=== PATIENT | male | born 1935 | race Native Hawaiian/Other Pacific Islander ===

== ENCOUNTER 2017-01-27 21:25 | Emergency (ER) | payer MEDICARE, OTHER ==
[2017-01-27 21:26] VITALS: BMI 26.6
--- NOTE | 2017-01-27 22:41 | C.PDOC ---
History Of Present Illness 81 y/o male presents to emergency department with complaint of left buttock pain for 2 days. Denies NSAIDs, ice, or use of other therapy for pain. Denies fall or trauma, or any other associated symptoms. Time Seen by Provider: 01/27/17 22:31 Chief Complaint (Nursing): Back Pain History Per: Patient History/Exam Limitations: no limitations Onset/Duration Of Symptoms: Days Current Symptoms Are (Timing): Still Present Quality Of Discomfort: "Pain" Previous Symptoms: None Associated Symptoms: None Recent travel outside of the [place]: No Past Medical History Reviewed: Historical Data, Nursing Documentation, Vital Signs Vital Signs: Last Vital Signs Temp 98.1 F 01/27/17 23:06 Pulse 82 01/27/17 23:06 Resp 16 01/27/17 23:06 BP 150/73 01/27/17 23:06 Pulse Ox 97 01/27/17 23:06 - Medical History PMH: Asthma, Colonic Polyps, HTN, Hypercholesterolemia - [facility] Procedures REMOV INTRALUM EAR FB (08/24/14) TETANUS TOXOID ADMINIST (01/18/15) Family History: States: Unknown Family Hx - Social History Hx Tobacco Use: No Hx Alcohol Use: No Hx Substance Use: No - Immunization History Hx Tetanus Toxoid Vaccination: No Hx Influenza Vaccination: No Hx Pneumococcal Vaccination: No Review Of Systems Except As Marked, All Systems Reviewed And Found Negative. Constitutional: Negative for: Fever, Chills Gastrointestinal: Negative for: Abdominal Pain Genitourinary: Negative for: Dysuria Musculoskeletal: Positive for: Other (left buttock pain ) Skin: Negative for: Rash Neurological: Negative for: Weakness, Numbness Physical Exam - Physical Exam Appears: Non-toxic, No Acute Distress Skin: Warm, Dry Head: Atraumatic, Normacephalic Chest: Symmetrical Cardiovascular: Rhythm Regular Respiratory: Normal Breath Sounds, No Rales, No Rhonchi, No Wheezing Gastrointestinal/Abdominal: Soft, No Tenderness Back: Normal Inspection, No Vertebral Tenderness, No Paraspinal Tenderness Extremity: Normal ROM, Tenderness (left superior posterior illiac crest, minorly worse with walking, no rash ), Capillary Refill (< 2 sec. ), No Deformity Neurological/Psych: Oriented x3, Normal Speech, Normal Cognition ED Course And Treatment O2 Sat by Pulse Oximetry: 98 (RA) Pulse Ox Interpretation: Normal Progress Note: Motrin given. Patient reports improvement of pain on reevaluation. Advised follow up with PMD within 1-2 days. Medical Decision Making Medical Decision Making: tender L posterior superior iliac crest, worse with walking, huge wallet in L posterior jeans pocket. ice packs/nsaids/? walletitis Disposition Doctor Will See Patient In The: Office Counseled Patient/Family Regarding: Studies Performed, Diagnosis - Disposition Referrals: Damian Dennis MD [Staff Provider] - Disposition: HOME/ ROUTINE Disposition Time: 22:40 Condition: GOOD Additional Instructions: motrin 400-600 mg every 6 hours as needed Ice packs to the affected area 1/2 hour per hour Nothing hot no massages Instructions: Musculoskeletal Pain (ED) - Clinical Impression Clinical Impression: Muscle strain of left hip - Scribe Statement The provider has reviewed the documentation as recorded by the Scribabner [place] All medical record entries made by the Scribe were at my direction and personally dictated by me. I have reviewed the chart and agree that the record accurately reflects my personal performance of the history, physical exam, medical decision making, and the department course for this patient. I have also personally directed, reviewed, and agree with the discharge instructions and disposition.
[2017-01-27 23:07] VITALS: BP 150/73; PULSE 82; RESP 16; TEMP 98.1
[2017-01-28 01:05] VITALS: O2SAT 98
== END 2017-01-27 23:10 | disposition home or self-care (01) ==
LOC: C.ER 21:25
DX: S76.012A Strain of muscle, fascia and tendon of left hip, initial encounter (principal); X58.XXXA Exposure to other specified factors, initial encounter

== ENCOUNTER 2017-09-05 08:59 | Day surgery (SDC) | payer MEDICARE, OTHER ==
[2017-08-10 23:53] VITALS: BMI 26.6
[2017-09-05 10:03] VITALS: RESP 18
--- NOTE | 2017-09-05 11:00 | CP.SDSHP ---
Same Day Surgery H & P - History Proposed Procedure: US guided FNA of left thyroid nodule Pre-Op Diagnosis: left thyroid nodule - Allergies Allergies: Allergies ciprofloxacin [From Cipro] Allergy (Mild, Verified 08/11/17 00:03) ITCHING ciprofloxacin HCl [From Cipro] Allergy (Mild, Verified 08/11/17 00:03) ITCHING iodine Allergy (Mild, Verified 08/11/17 00:03) ITCHING levofloxacin [From Levaquin] Allergy (Mild, Verified 08/11/17 00:03) ITCHING sulfamethoxazole [From Bactrim] Allergy (Mild, Verified 08/11/17 00:03) ITCHING trimethoprim [From Bactrim] Allergy (Mild, Verified 08/11/17 00:03) ITCHING - Physical Exam Vital Signs: Vital Signs 09/05/17 09:44 Temperature 98.3 F Pulse Rate 90 Respiratory 18 Rate Blood Pressure 136/73 O2 Sat by Pulse 97 Oximetry Mental Status: Alert & Oriented x3 Neuro: WNL Heart: WNL - Impression Impression: Pt with a 2.7 cm left thyroid nodule. Plan US guided FNA . Pt. Evaluated Today:Candidate for Anesthesia & Procedure: No Short Stay Discharge - Short Stay Discharge Admitting Diagnosis/Reason for Visit: NONTOXIC SINGLE THYROID NODULE Disposition: HOME/ ROUTINE
--- NOTE | 2017-09-05 11:01 | PCM.SURG1 ---
Surgeon's Initial Post Op Note - Surgeon's Notes Surgeon: Rafat Gallardo MD Commodity Lead: NONE Pre-Operative Diagnosis: left thyroid nodule Operative Findings: 2.7 cm solid left thyroid nodule Post-Operative Diagnosis: left thyroid nodule Operation Performed: US guided FNA Specimen/Specimens Removed: 25 g FNA x 4 Estimated Blood Loss: EBL {In ML}: 0 Blood Products Given: N/A Drains Used: No Drains Post-Op Condition: Good Date of Surgery/Procedure: 09/05/17 Time of Surgery/Procedure: 11:00
[2017-09-05 11:19] VITALS: BP 117/71; PULSE 88; TEMP 97.8; O2SAT 98
--- NOTE | 2017-09-09 11:10 | US ---
PROCEDURE: Date of Procedure: 09/05/2017 PROCEDURE: 1. Ultrasound guided FNA of left thyroid nodule, CPT 01822 2. Ultrasound guidance for FNA, 78941 Medications: 3cc 1% Lidocaine HISTORY: Enlarged left thyroid nodule. TECHNIQUE: Following informed consent and procedure time-out, a limited ultrasound patient's neck confirmed the presence of a 2.4 cm x 1.4 cm x 2 cm complex left thyroid nodule which is predominantly solid. After the patient's neck was prepped and draped in the usual sterile fashion, the skin was anesthetized with 1% lidocaine. Ultrasound-guided fine needle aspiration was then performed of the dominant left thyroid nodule. A total of 4 passes were made into the nodule with 25 gauge needle under ultrasound guidance. The FNA specimen was sent for routine pathology. Post biopsy ultrasound showed no hematoma. IMPRESSION: Ultrasound-guided FNA of the dominant left thyroid nodule.
== END 2017-09-05 11:25 | disposition home or self-care (01) ==
LOC: C.SPRAD 08:59
PROVIDERS: ATTEND Radiology Vascular & Interventional Radiology
DX: E04.1 Nontoxic single thyroid nodule (principal)

== ENCOUNTER 2017-10-09 04:58 | Inpatient (IN) | payer MEDICARE, OTHER ==
[2017-10-09 04:58] VITALS: BMI 26.6
--- NOTE | 2017-10-09 05:21 | C.PDOC ---
History Of Present Illness Patient presents to the ER with a complaint fever and chills since last night. Patient states the chills were so bad last night that he could not walk. He also reports a mild nonproductive cough and reports his symptoms have slightly improved. Denies dysuria or hematuria. Time Seen by Provider: 10/09/17 05:21 Chief Complaint (Nursing): Fever History Per: Patient History/Exam Limitations: no limitations Onset/Duration Of Symptoms: Hrs Current Symptoms Are (Timing): Still Present Location Of Pain: None Sick Contacts (Context): None Associated Symptoms: Fever, Chills. denies: Other (Dysuria, Hematuria) Ear Symptoms: Bilateral: None Recent travel outside of the [place]: No Additional History Per: Family Past Medical History Reviewed: Historical Data, Nursing Documentation, Vital Signs Vital Signs: Last Vital Signs Temp 102.3 F H 10/09/17 05:09 Pulse 116 H 10/09/17 05:04 Resp 22 10/09/17 05:04 BP 124/69 10/09/17 05:04 Pulse Ox 95 10/09/17 06:35 - Medical History PMH: Asthma, Colonic Polyps, HTN, Hypercholesterolemia - [facility] Procedures REMOV INTRALUM EAR FB (08/24/14) TETANUS TOXOID ADMINIST (01/18/15) Family History: States: No Known Family Hx - Social History Hx Tobacco Use: No Hx Alcohol Use: No Hx Substance Use: No - Immunization History Hx Tetanus Toxoid Vaccination: No Hx Influenza Vaccination: Yes Hx Pneumococcal Vaccination: Yes Review Of Systems Constitutional: Positive for: Fever, Chills ENT: Negative for: Ear Pain, Throat Pain Cardiovascular: Negative for: Chest Pain Respiratory: Negative for: Shortness of Breath Gastrointestinal: Negative for: Nausea, Vomiting Genitourinary: Negative for: Dysuria, Hematuria Musculoskeletal: Negative for: Back Pain Skin: Negative for: Rash Neurological: Negative for: Weakness Psych: Negative for: Anxiety Physical Exam - Physical Exam Appears: Non-toxic Skin: Warm, Dry Head: Normacephalic Eye(s): bilateral: Normal Inspection Oral Mucosa: Moist Neck: Supple Chest: Symmetrical, No Tenderness Cardiovascular: Rhythm Regular Respiratory: No Rales, No Rhonchi, No Wheezing Gastrointestinal/Abdominal: Soft, No Tenderness Back: No CVA Tenderness Extremity: Normal ROM Extremity: Bilateral: Atraumatic Pulses: Left Dorsalis Pedis: Normal, Right Dorsalis Pedis: Normal Neurological/Psych: Oriented x3, Normal Speech, Normal Cognition Gait: Steady ED Course And Treatment - Laboratory Results Result Diagrams: 10/09/17 06:00 10/09/17 06:00 ECG: Interpreted By Me, Viewed By Me ECG Rhythm: Sinus Rhythm (92), Nonspecific Changes O2 Sat by Pulse Oximetry: 95 (room air) Pulse Ox Interpretation: Normal - Radiology CXR: Interpreted by Me, Viewed By Me CXR Interpretation: Yes: Infiltrates (rll). No: Fracture, Cardiomegaly Progress Note: Blood work, EKG, CXR, and urinalysis ordered. Disposition Discussed With Dr.: Damian Dennis Comment: accepted the pt on his service and took over the care at 6:41 AM Doctor Will See Patient In The: ED Counseled Patient/Family Regarding: Studies Performed, Diagnosis - Disposition Disposition: HOSPITALIZED Disposition Time: 05:21 Condition: FAIR Forms: [facility] (Czech) - POA Present On Arrival: Poor Glycemic Control - Clinical Impression Clinical Impression: Fever, Pneumonia - Scribe Statement The provider has reviewed the documentation as recorded by the Scribe Eugene Linares All medical record entries made by the Scribe were at my direction and personally dictated by me. I have reviewed the chart and agree that the record accurately reflects my personal performance of the history, physical exam, medical decision making, and the department course for this patient. I have also personally directed, reviewed, and agree with the discharge instructions and disposition. Decision To Admit - Pt Status Changed To: Hospital Disposition Of: Inpatient - Admit Certification Admit to Inpatient:: After my assessment, the patient will require hospitalization for at least two midnights. This is because of the severity of symptoms shown, intensity of services needed, and/or the medical risk in this patient being treated as an outpatient. - InPatient: Physician Admission Certification:: After my assessment, the patient will require hospitalization for at least two midnights. This is because of the severity of symptoms shown, intensity of services needed, and/or the medical risk in this patient being treated as an outpatient. - . Bed Request Type: Regular Admitting Physician: Damian Dennis Patient Diagnosis: Fever, Pneumonia
[2017-10-09 05:59] LABS: VENOUS BLOOD GAS BASE EXCESS -0.2 mmol/L (0.0-2.0); VENOUS BLOOD GAS PCO2 37 mmHg (40-60); VENOUS BLOOD GAS PO2 49 mm/Hg (30-55); VENOUS BLOOD PH 7.42 (7.32-7.43)
[2017-10-09 06:05] LABS: BASO # 0.1 K/uL (0.0-0.2); BASO % 0.4 % (0.0-2.0); EOS % 0.1 % (0.0-4.0); HEMOGLOBIN 12.2 g/dL (12.0-18.0); LYMPH # 0.3 K/uL (1.0-4.3); LYMPH % 1.7 % (20.0-40.0); MEAN CELL VOLUME 93.7 fL (80.0-94.0); MEAN CORPUSCULAR HEMOGLOBIN 31.3 pg (27.0-31.0); MEAN CORPUSCULAR HGB CONC 33.4 g/dL (33.0-37.0); MEAN PLATELET VOLUME 9.3 fL (7.2-11.7); NEUT # 15.8 K/uL (1.8-7.0); NEUT % 91.8 % (50.0-75.0); PLATELET COUNT 179 K/uL (130-400); RBC 3.88 Mil/uL (4.40-5.90); RED CELL DISTRIBUTION WIDTH 13.9 % (11.5-14.5); WHITE BLOOD COUNT 17.3 K/uL (4.8-10.8)
[2017-10-09 06:11] LABS: CALCIUM 8.5 mg/dl (8.6-10.4); GFR AFRICAN-AMERICAN > 60; GFR NON-AFRICAN AMERICAN > 60
[2017-10-09 06:12] LABS: INR 1.2
[2017-10-09 06:36] LABS: ALB/GLOB RATIO 1.2 (1.0-2.1); ALBUMIN 3.9 g/dL (3.5-5.0); ALT/SGPT 40 U/L (21-72); AST/SGOT 81 U/L (17-59); BLOOD UREA NITROGEN 25 mg/dL (9-20); MAGNESIUM 1.5 mg/dL (1.6-2.3)
[2017-10-09] MEDS ORDERED: Piperacillin/Tazobact 3.375 gm 100 ML IVPB STA (06:36)
[2017-10-09 06:52] LABS: BANDS 4 % (0-2); LYMPHOCYTE 1 % (20-40); MONOCYTE 2 % (0-10); NEUTROPHIL 93 % (50-75); PLATELET ESTIMATE NORMAL (NORMAL); TOTAL CELLS COUNTED 100
[2017-10-09 06:53] LABS: TOXIC GRANULATION PRESENT
[2017-10-09] MEDS ORDERED: Piperacill/Tazo 3.375gm in Dex 3.375 GM/50 ML BAG IVPB SCH (07:00)
--- NOTE | 2017-10-09 07:17 | CP.PCM.HP ---
History of Present Illness - History of Present Illness History of Present Illness: Chief complaint: Chills, cough History of present illness: 81-year-old male with a history of BPH, asthma, hypertension, lung fibrosis, bronchial asthma. Patient recently went to [place], last week he returned from [place], following that he started having some minimal chills. He was doing okay until yesterday, lasted he started having increasing cough, increasing chills, and also not feeling well. Patient also feeling like dizzy. He took TheraFlu, went to sleep, this morning he started having more symptoms. He felt increasing chills, shaking, and also drowsy. He was not able to eat, but he did not have any vomiting or nausea, no diarrhea noted. But he did not have a fever at that time. After coming to the emergency room he had a high fever, chills, and a tachycardia. He was also having increasing cough. X-ray in the emergency room noted to have a right lower lung pneumonia. Past medical history: BPH bronchial asthma hypertension, history of left lung surgery following a trauma. Allergies: Ciprofloxacin Nonsmoker nonalcoholic. Review of systems noted from the chart. Vital signs reviewed No neck vein distention noted Diffuse bilateral rales in the rhonchi noted CVS regular heart sound, no murmur noted Abdomen soft, nontender. 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 Elevated WBC noted Assessment and recognition: 81-year-old male with a history of BPH, asthma, hypertension, lung fibrosis, bronchial asthma, now admitted with acute pneumonia. Patient received a pneumococcal vaccine, and a flu vaccine recently. Now admitted with acute pneumonia, with acute asthma exacerbation. Patient started on IV antibiotic bronchodilator, DVT prophylaxis. IV fluid and will follow the patient. Patient also having pneumonia, and associated sepsis with a low blood pressure, slowly improving. Educated about pneumonia, spoke to the patient's Present on Admission - Present on Admission Any Indicators Present on Admission: No History of DVT/PE: No History of Uncontrolled Diabetes: No Urinary Catheter: No Decubitus Ulcer Present: No Past Patient History - Infectious Disease Hx of Infectious Diseases: None - Tetanus Immunizations Tetanus Immunization: Unknown - Past Medical History & Family History Past Medical History?: Yes - Past Social History Smoking Status: Former Smoker - CARDIAC Hx Hypercholesterolemia: Yes Hx Hypertension: Yes - PULMONARY Hx Asthma: Yes - NEUROLOGICAL Hx Neurological Disorder: No - HEENT Hx HEENT Problems: Yes Hx Cataracts: Yes (were removed) - RENAL Hx Chronic Kidney Disease: No - ENDOCRINE/METABOLIC Hx Endocrine Disorders: Yes Other/Comment: HX: THYROID NODULE(LEFT) - HEMATOLOGICAL/ONCOLOGICAL Hx Blood Disorders: No - INTEGUMENTARY Hx Dermatological Problems: No - MUSCULOSKELETAL/RHEUMATOLOGICAL Hx Musculoskeletal Disorders: Yes Hx Falls: Yes - GASTROINTESTINAL Hx Gastrointestinal Disorders: Yes - GENITOURINARY/GYNECOLOGICAL Hx Genitourinary Disorders: Yes Hx Prostate Problems: Yes - PSYCHIATRIC Hx Substance Use: No - SURGICAL HISTORY Hx Surgeries: Yes Hx Cataract Extraction: Yes Hx Pulmonary Surgery: Yes (LT LUNG EMBOLI REMOVED) Other/Comment: 1955 blood clot removed from left lung from an accident when pt.in the service - ANESTHESIA Hx Anesthesia: Yes Hx Anesthesia Reactions: No Hx Malignant Hyperthermia: No Meds Allergies/Adverse Reactions: Allergies Allergy/AdvReac Type Severity Reaction Status Date / Time ciprofloxacin [From Cipro] Allergy Mild ITCHING Verified 10/09/17 05:19 ciprofloxacin HCl Allergy Mild ITCHING Verified 10/09/17 05:19 [From Cipro] iodine Allergy Mild ITCHING Verified 10/09/17 05:19 levofloxacin [From Levaquin] Allergy Mild ITCHING Verified 10/09/17 05:19 sulfamethoxazole Allergy Mild ITCHING Verified 10/09/17 05:19 [From Bactrim] trimethoprim [From Bactrim] Allergy Mild ITCHING Verified 10/09/17 05:19 Results - Vital Signs Recent Vital Signs: Last Vital Signs Temp 98.5 F 10/09/17 07:00 Pulse 91 H 10/09/17 07:00 Resp 26 H 10/09/17 07:00 BP 98/56 L 10/09/17 07:00 Pulse Ox 96 10/09/17 07:00 - Labs Result Diagrams: 10/09/17 17:22 10/09/17 17:22 Labs: Laboratory Results - last 24 hr 10/09/17 10/09/17 10/09/17 05:55 06:00 06:00 WBC 17.3 H D RBC 3.88 L Hgb 12.2 Hct 36.3 MCV 93.7 MCH 31.3 H MCHC 33.4 RDW 13.9 Plt Count 179 MPV 9.3 Neut % (Auto) 91.8 H Lymph % (Auto) 1.7 L [place] % (Auto) 6.0 Eos % (Auto) 0.1 Baso % (Auto) 0.4 Neut # 15.8 H Lymph # 0.3 L [place] # 1.0 H Eos # 0.0 Baso # 0.1 Neutrophils % (Manual) 93 H Band Neutrophils % 4 H Lymphocytes % (Manual) 1 L Monocytes % (Manual) 2 Toxic Granulation Present Platelet Estimate Normal RBC Morphology Normal PT 13.0 H INR 1.2 APTT 27 pO2 49 VBG pH 7.42 VBG pCO2 37 L VBG HCO3 24.4 VBG Total CO2 25.1 VBG O2 Sat (Calc) 89.0 H VBG Base Excess -0.2 L VBG Potassium 3.8 Sodium 136.0 Chloride 105.0 Glucose 137 H Lactate 1.0 Potassium Carbon Dioxide Anion Gap BUN Creatinine Est GFR ( Amer) Est GFR (Non-Af Amer) Random Glucose Calcium Phosphorus Magnesium Total Bilirubin AST ALT Alkaline Phosphatase Total Protein Albumin Globulin Albumin/Globulin Ratio Venous Blood Potassium 3.8 10/09/17 06:00 WBC RBC Hgb Hct MCV MCH MCHC RDW Plt Count MPV Neut % (Auto) Lymph % (Auto) [place] % (Auto) Eos % (Auto) Baso % (Auto) Neut # Lymph # [place] # Eos # Baso # Neutrophils % (Manual) Band Neutrophils % Lymphocytes % (Manual) Monocytes % (Manual) Toxic Granulation Platelet Estimate RBC Morphology PT INR APTT pO2 VBG pH VBG pCO2 VBG HCO3 VBG Total CO2 VBG O2 Sat (Calc) VBG Base Excess VBG Potassium Sodium 130 L Chloride 99 Glucose Lactate Potassium 5.0 Carbon Dioxide 24 Anion Gap 12 BUN 25 H Creatinine 1.1 Est GFR ( Amer) > 60 Est GFR (Non-Af Amer) > 60 Random Glucose 129 H Calcium 8.5 L Phosphorus 2.4 L Magnesium 1.5 L Total Bilirubin 1.3 AST 81 H ALT 40 Alkaline Phosphatase 48 Total Protein 7.2 Albumin 3.9 Globulin 3.3 Albumin/Globulin Ratio 1.2 Venous Blood Potassium
[2017-10-09] MEDS ORDERED: Sodium Chloride 0.9% 1,000 ML ONE (07:45)
[2017-10-09] MEDS: Sodium Chloride 0.9% 1,000 ML IV SCH ×2 (07:51→17:30)
[2017-10-09] MEDS: Vancomycin 1 gm/NS 200 ml 1 GM/200 ML BAG IVPB SCH ×2 (08:00→21:21)
--- NOTE | 2017-10-09 08:52 | RAD ---
HISTORY: Sepsis Patient COMPARISON: 11/27/2016 FINDINGS: LUNGS: New opacity mid and lower right lung common nonspecific. Possible pneumonia. No left-sided opacity. PLEURA: Slight blunting left costophrenic angle unchanged from prior, possibly small pleural effusion. No right pleural effusion. No pneumothorax CARDIOVASCULAR: Normal. OSSEOUS STRUCTURES: No significant abnormalities. VISUALIZED UPPER ABDOMEN: Normal. OTHER FINDINGS: None. IMPRESSION: Multifocal right-sided pulmonary opacity. Possible pneumonia. Possible small left pleural effusion.
[2017-10-09] MEDS ORDERED: MIRABEGRON PO SCH (10:00)
[2017-10-09] MEDS ORDERED: Fluticasone-Salmeterol 500-50mcg Diskus INH SCH (10:00)
[2017-10-09 10:04] LABS: SQUAMOUS EPITHIAL < 1 /hpf (0-5); URINE BILIRUBIN NEGATIVE (NEGATIVE); URINE BLOOD NEGATIVE (NEGATIVE); URINE CLARITY Clear (Clear); URINE COLOR Yellow (YELLOW); URINE GLUCOSE (UA) NORMAL (Normal); URINE LEUKOCYTE ESTERASE NEG Leu/uL (Negative); URINE NITRATE NEGATIVE (NEGATIVE); URINE PROTEIN NEGATIVE (NEGATIVE); URINE UROBILINOGEN NORMAL mg/dL (0.2-1.0)
[2017-10-09] MEDS: Multiple Vitamins Tab PO SCH (10:29)
[2017-10-09] MEDS: Enoxaparin 30 mg Syringe SC SCH ×2 (10:30→21:22)
[2017-10-09] MEDS: MethylPREDNISolone 40 mg Vial IVP SCH ×2 (10:40→21:22)
[2017-10-09] MEDS: Magnesium Sulfate 1 gm in D5W 1 GM/100 ML BAG IVPB SCH ×2 (10:41→12:08)
[2017-10-09] MEDS ORDERED: Magnesium Sulfate 1 gm in D5W 1 GM/100 ML BAG IVPB SCH (12:00)
[2017-10-09] MEDS: Albuterol-Ipratrop 3 mg / 0.5 (3 ml) UD INH SCH ×2 (13:18→21:01)
[2017-10-09] MEDS: Piperacill/Tazo 2.25gm in Dex 2.25 GM/50 ML BAG IVPB SCH ×2 (13:39→21:22)
[2017-10-09] MEDS: MICARDIS HCT PO SCH (14:35)
[2017-10-09 17:44] LABS: BASO % 0.1 % (0.0-2.0); HEMOGLOBIN 12.4 g/dL (12.0-18.0); LYMPH # 0.2 K/uL (1.0-4.3); LYMPH % 1.1 % (20.0-40.0); MEAN CELL VOLUME 94.7 fL (80.0-94.0); MEAN CORPUSCULAR HGB CONC 31.7 g/dL (33.0-37.0); MEAN PLATELET VOLUME 9.1 fL (7.2-11.7); MONO # 0.3 K/uL (0.0-0.8); MONO % 1.5 % (0.0-10.0); PLATELET COUNT 192 K/uL (130-400); RBC 4.12 Mil/uL (4.40-5.90); RED CELL DISTRIBUTION WIDTH 13.7 % (11.5-14.5); WHITE BLOOD COUNT 16.7 K/uL (4.8-10.8)
[2017-10-09 18:03] LABS: BLOOD UREA NITROGEN 24 mg/dL (9-20); CALCIUM 8.2 mg/dl (8.6-10.4); GFR AFRICAN-AMERICAN > 60; GFR NON-AFRICAN AMERICAN > 60
[2017-10-09 18:04] LABS: ALB/GLOB RATIO 1.1 (1.0-2.1); ALBUMIN 3.6 g/dL (3.5-5.0); ALT/SGPT 42 U/L (21-72); AST/SGOT 36 U/L (17-59)
[2017-10-09 18:11] LABS: BANDS 11 % (0-2); LYMPHOCYTE 2 % (20-40); MONOCYTE 2 % (0-10); NEUTROPHIL 85 % (50-75); PLATELET ESTIMATE NORMAL (NORMAL); TOTAL CELLS COUNTED 100
[2017-10-10] MEDS: Albuterol-Ipratrop 3 mg / 0.5 (3 ml) UD INH SCH ×4 (01:13→19:31)
[2017-10-10] MEDS: Sodium Chloride 0.9% 1,000 ML IV SCH (03:05)
[2017-10-10] MEDS: Piperacill/Tazo 2.25gm in Dex 2.25 GM/50 ML BAG IVPB SCH ×3 (05:04→21:55)
[2017-10-10] MEDS: Vancomycin 1 gm/NS 200 ml 1 GM/200 ML BAG IVPB SCH ×2 (07:47→20:18)
[2017-10-10] MEDS: Multiple Vitamins Tab PO SCH (09:22)
[2017-10-10] MEDS: MethylPREDNISolone 40 mg Vial IVP SCH ×2 (09:22→21:17)
[2017-10-10] MEDS: Enoxaparin 30 mg Syringe SC SCH ×2 (09:22→21:17)
[2017-10-10] MEDS: MICARDIS HCT PO SCH (14:09)
--- NOTE | 2017-10-10 14:50 | CARD ---
APPROVED REPORT EKG Measurement Heart [id number] VT [id number] <Conclusion> Normal sinus rhythm Inferior infarct, age undetermined Abnormal ECG
--- NOTE | 2017-10-10 14:51 | CARD ---
APPROVED REPORT EKG Measurement Heart [id number] VT 152P47 [id number] <Conclusion> Normal sinus rhythm Inferior-posterior infarct, age undetermined Abnormal ECG
[2017-10-11] MEDS: Albuterol-Ipratrop 3 mg / 0.5 (3 ml) UD INH SCH ×4 (03:19→19:58)
[2017-10-11] MEDS: Piperacill/Tazo 2.25gm in Dex 2.25 GM/50 ML BAG IVPB SCH ×3 (05:02→22:45)
[2017-10-11 08:21] LABS: BASO % 0.2 % (0.0-2.0); HEMOGLOBIN 11.5 g/dL (12.0-18.0); LYMPH # 0.5 K/uL (1.0-4.3); LYMPH % 2.8 % (20.0-40.0); MEAN CELL VOLUME 93.5 fL (80.0-94.0); MEAN CORPUSCULAR HEMOGLOBIN 31.4 pg (27.0-31.0); MEAN CORPUSCULAR HGB CONC 33.6 g/dL (33.0-37.0); MEAN PLATELET VOLUME 9.6 fL (7.2-11.7); MONO # 0.7 K/uL (0.0-0.8); MONO % 3.9 % (0.0-10.0); NEUT # 16.2 K/uL (1.8-7.0); NEUT % 93.1 % (50.0-75.0); PLATELET COUNT 214 K/uL (130-400); RBC 3.68 Mil/uL (4.40-5.90); RED CELL DISTRIBUTION WIDTH 14.2 % (11.5-14.5); WHITE BLOOD COUNT 17.4 K/uL (4.8-10.8)
[2017-10-11] MEDS: Vancomycin 1 gm/NS 200 ml 1 GM/200 ML BAG IVPB SCH ×2 (08:37→19:19)
[2017-10-11 08:44] LABS: ALB/GLOB RATIO 1.2 (1.0-2.1); ALBUMIN 3.4 g/dL (3.5-5.0); ALT/SGPT 51 U/L (21-72); AST/SGOT 36 U/L (17-59); BLOOD UREA NITROGEN 20 mg/dL (9-20); CALCIUM 8.2 mg/dl (8.6-10.4); GFR AFRICAN-AMERICAN > 60; GFR NON-AFRICAN AMERICAN > 60
--- NOTE | 2017-10-11 09:14 | RAD ---
HISTORY: PNA COMPARISON: 10/09/2017 FINDINGS: LUNGS: Focal opacity mid right lung, laterally, unchanged. PLEURA: Blunting the left costophrenic angle likely due to pleural effusion. No evidence of right pleural effusion. No pneumothorax. CARDIOVASCULAR: Normal. OSSEOUS STRUCTURES: No significant abnormalities. VISUALIZED UPPER ABDOMEN: Normal. OTHER FINDINGS: None. IMPRESSION: Persistent focal opacity mid right lung. Probable small left pleural effusion.
[2017-10-11] MEDS: Enoxaparin 30 mg Syringe SC SCH ×2 (09:22→21:36)
[2017-10-11] MEDS: Multiple Vitamins Tab PO SCH (09:22)
[2017-10-11] MEDS: MethylPREDNISolone 40 mg Vial IVP SCH ×2 (09:22→21:36)
[2017-10-11 09:35] LABS: BANDS 3 % (0-2); TOTAL CELLS COUNTED 100
[2017-10-11 09:36] LABS: ANISOCYTOSIS SLIGHT; LYMPHOCYTE 2 % (20-40); MONOCYTE 3 % (0-10); NEUTROPHIL 92 % (50-75); PLATELET ESTIMATE NORMAL (NORMAL); POIKILOCYTOSIS SLIGHT
[2017-10-11] MEDS: MICARDIS HCT PO SCH (12:22)
[2017-10-12] MEDS: Albuterol-Ipratrop 3 mg / 0.5 (3 ml) UD INH SCH ×3 (02:03→13:22)
[2017-10-12] MEDS: Piperacill/Tazo 2.25gm in Dex 2.25 GM/50 ML BAG IVPB SCH ×2 (05:06→13:48)
[2017-10-12] MEDS: Vancomycin 1 gm/NS 200 ml 1 GM/200 ML BAG IVPB SCH (07:56)
[2017-10-12 08:49] VITALS: RESP 20
[2017-10-12] MEDS: Multiple Vitamins Tab PO SCH (09:45)
[2017-10-12] MEDS: MethylPREDNISolone 40 mg Vial IVP SCH (09:45)
[2017-10-12] MEDS: MICARDIS HCT PO SCH (09:46)
[2017-10-12] MEDS: Enoxaparin 30 mg Syringe SC SCH (09:48)
[2017-10-12 09:53] VITALS: PULSE 67
[2017-10-12 16:30] VITALS: BP 142/69; TEMP 97.5; O2SAT 96
--- NOTE | 2017-10-12 16:40 | CP.PCM.PN ---
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, states feels better, denies any sob, cough, congestion, n/v /d oob ambulating without sob Objective - Vital Signs/Intake and Output Vital Signs (last 24 hours): Temp Pulse Resp BP Pulse Ox 97.5 F L 67 20 142/69 96 10/12/17 16:29 10/12/17 16:29 10/12/17 16:29 10/12/17 16:29 10/12/17 16:29 Intake and Output: 10/12/17 10/12/17 06:59 18:59 Intake Total 700 Balance 700 - Medications Medications: Current Medications Albuterol/Ipratropium (Duoneb 3 Mg/0.5 Mg (3 Ml) Ud) 3 ml INH RQ6 [facility] Last Admin: 10/12/17 13:22 Dose: 3 ml Aspirin (Aspirin Chewable) 81 mg PO DAILY [facility] Last Admin: 10/12/17 09:44 Dose: 81 mg Enoxaparin Sodium (Lovenox) 30 mg SC Q12 [facility] Last Admin: 10/12/17 09:48 Dose: 30 mg Finasteride (Proscar) 5 mg PO DAILY [facility] Last Admin: 10/12/17 09:45 Dose: 5 mg Home Med (Mirabegron [Myrbetriq]) 1 tab PO DAILY [facility] Home Med (Patient's Own Medication) 1 tab PO DAILY [facility] Last Admin: 10/12/17 09:46 Dose: 1 tab Piperacillin Sod/Tazobactam Sod (Zosyn 2.25 Gm Iv Premix) 2.25 gm in 50 mls @ 100 mls/hr IVPB Q8 [facility] Last Admin: 10/12/17 13:48 Dose: 100 mls/hr Vancomycin/Sodium Chloride (Vancomycin 1 Gm/Ns 200 Ml) 1 gm in 200 mls @ 133 mls/hr IVPB Q12H [facility] Stop: 10/14/17 08:01 Last Admin: 10/12/17 07:56 Dose: 133 mls/hr Methylprednisolone (Solu-Medrol) 40 mg IVP Q12 [facility] Last Admin: 10/12/17 09:45 Dose: 40 mg Montelukast Sodium (Singulair) 10 mg PO HS [facility] Last Admin: 10/11/17 21:35 Dose: 10 mg Multivitamins (Hexavitamin) 1 tab PO DAILY [place] Last Admin: 10/12/17 09:45 Dose: 1 tab Fluticasone/Salmeterol (Advair Diskus 500/50) 1 puff INH TID [facility] Tamsulosin HCl (Flomax) 0.8 mg PO DAILY [facility] Last Admin: 10/12/17 09:44 Dose: 0.8 mg - Labs Labs: 10/11/17 07:58 10/11/17 07:58 PT 13.0 SECONDS (9.7-12.2) H 10/09/17 06:00 INR 1.2 10/09/17 06:00 APTT 27 SECONDS (21-34) 10/09/17 06:00
--- NOTE | 2017-10-14 18:23 | CP.PCM.PN ---
Subjective - Date & Time of Evaluation Date of Evaluation: 10/11/17 Objective - Vital Signs/Intake and Output Vital Signs (last 24 hours): Temp Pulse Resp BP Pulse Ox 97.5 F L 67 20 142/69 96 10/12/17 16:29 10/12/17 16:29 10/12/17 16:29 10/12/17 16:29 10/12/17 16:29 - Labs Labs: 10/11/17 07:58 10/11/17 07:58 PT 13.0 SECONDS (9.7-12.2) H 10/09/17 06:00 INR 1.2 10/09/17 06:00 APTT 27 SECONDS (21-34) 10/09/17 06:00
--- NOTE | 2017-10-14 18:23 | CP.PCM.PN ---
Subjective - Date & Time of Evaluation Date of Evaluation: 10/10/17 Objective - Vital Signs/Intake and Output Vital Signs (last 24 hours): Temp Pulse Resp BP Pulse Ox 97.5 F L 67 20 142/69 96 10/12/17 16:29 10/12/17 16:29 10/12/17 16:29 10/12/17 16:29 10/12/17 16:29 - Labs Labs: 10/11/17 07:58 10/11/17 07:58 PT 13.0 SECONDS (9.7-12.2) H 10/09/17 06:00 INR 1.2 10/09/17 06:00 APTT 27 SECONDS (21-34) 10/09/17 06:00
--- NOTE | 2017-10-14 18:23 | CP.PCM.PN ---
Subjective - Date & Time of Evaluation Date of Evaluation: 10/12/17 Objective - Vital Signs/Intake and Output Vital Signs (last 24 hours): Temp Pulse Resp BP Pulse Ox 97.5 F L 67 20 142/69 96 10/12/17 16:29 10/12/17 16:29 10/12/17 16:29 10/12/17 16:29 10/12/17 16:29 - Labs Labs: 10/11/17 07:58 10/11/17 07:58 PT 13.0 SECONDS (9.7-12.2) H 10/09/17 06:00 INR 1.2 10/09/17 06:00 APTT 27 SECONDS (21-34) 10/09/17 06:00
--- NOTE | 2017-10-14 18:24 | CP.PCM.DIS ---
Provider - Provider Date of Admission: 10/09/17 06:40 Attending physician: Damian Dennis MD Hospital Course - Lab Results Lab Results: Micro Results 10/09/17 06:00 Blood Blood Culture - Final NO GROWTH AFTER 5 DAYS 10/09/17 06:00 Blood Gram Stain - Final TEST NOT PERFORMED 10/09/17 05:30 Blood Blood Culture - Final NO GROWTH AFTER 5 DAYS 10/09/17 05:30 Blood Gram Stain - Final TEST NOT PERFORMED 10/10/17 14:00 Sputum Gram Stain - Final 10/10/17 14:00 Sputum Sputum Culture - Final NORMAL ORAL RYAN 10/09/17 08:01 Urine Urine Culture - Final No Growth (<1,000 CFU/ML) Most Recent Lab Values WBC 17.4 K/uL (4.8-10.8) H 10/11/17 07:58 RBC 3.68 Mil/uL (4.40-5.90) L 10/11/17 07:58 Hgb 11.5 g/dL (12.0-18.0) L 10/11/17 07:58 Hct 34.4 % (35.0-51.0) L 10/11/17 07:58 MCV 93.5 fL (80.0-94.0) 10/11/17 07:58 MCH 31.4 pg (27.0-31.0) H 10/11/17 07:58 MCHC 33.6 g/dL (33.0-37.0) 10/11/17 07:58 RDW 14.2 % (11.5-14.5) 10/11/17 07:58 Plt Count 214 K/uL (130-400) 10/11/17 07:58 MPV 9.6 fL (7.2-11.7) 10/11/17 07:58 Neut % (Auto) 93.1 % (50.0-75.0) H 10/11/17 07:58 Lymph % (Auto) 2.8 % (20.0-40.0) L 10/11/17 07:58 Routt % (Auto) 3.9 % (0.0-10.0) 10/11/17 07:58 Eos % (Auto) 0.0 % (0.0-4.0) 10/11/17 07:58 Baso % (Auto) 0.2 % (0.0-2.0) 10/11/17 07:58 Neut # 16.2 K/uL (1.8-7.0) H 10/11/17 07:58 Lymph # 0.5 K/uL (1.0-4.3) L 10/11/17 07:58 Routt # 0.7 K/uL (0.0-0.8) 10/11/17 07:58 Eos # 0.0 K/uL (0.0-0.7) 10/11/17 07:58 Baso # 0.0 K/uL (0.0-0.2) 10/11/17 07:58 Neutrophils % (Manual) 92 % (50-75) H 10/11/17 07:58 Band Neutrophils % 3 % (0-2) H 10/11/17 07:58 Lymphocytes % (Manual) 2 % (20-40) L 10/11/17 07:58 Monocytes % (Manual) 3 % (0-10) 10/11/17 07:58 Toxic Granulation Present 10/09/17 06:00 Platelet Estimate Normal (NORMAL) 10/11/17 07:58 RBC Morphology Normal 10/09/17 17:22 Poikilocytosis (manual Slight 10/11/17 07:58 Anisocytosis (manual) Slight 10/11/17 07:58 PT 13.0 SECONDS (9.7-12.2) H 10/09/17 06:00 INR 1.2 10/09/17 06:00 APTT 27 SECONDS (21-34) 10/09/17 06:00 pO2 49 mm/Hg (30-55) 10/09/17 05:55 VBG pH 7.42 (7.32-7.43) 10/09/17 05:55 VBG pCO2 37 mmHg (40-60) L 10/09/17 05:55 VBG HCO3 24.4 mmol/L 10/09/17 05:55 VBG Total CO2 25.1 mmol/L (22-28) 10/09/17 05:55 VBG O2 Sat (Calc) 89.0 % (40-65) H 10/09/17 05:55 VBG Base Excess -0.2 mmol/L (0.0-2.0) L 10/09/17 05:55 VBG Potassium 3.8 mmol/L (3.6-5.2) 10/09/17 05:55 Sodium 136.0 mmol/l (132-148) 10/09/17 05:55 Chloride 105.0 mmol/L (98-107) 10/09/17 05:55 Glucose 137 mg/dl (75-110) H 10/09/17 05:55 Lactate 1.0 mmol/L (0.7-2.1) 10/09/17 05:55 Sodium 135 mmol/L (132-148) 10/11/17 07:58 Potassium 4.1 mmol/L (3.6-5.2) 10/11/17 07:58 Chloride 106 mmol/L (98-107) 10/11/17 07:58 Carbon Dioxide 24 mmol/L (22-30) 10/11/17 07:58 Anion Gap 9 (10-20) L 10/11/17 07:58 BUN 20 mg/dL (9-20) 10/11/17 07:58 Creatinine 1.0 mg/dL (0.8-1.5) 10/11/17 07:58 Est GFR ( Amer) > 60 10/11/17 07:58 Est GFR (Non-Af Amer) > 60 10/11/17 07:58 Random Glucose 135 mg/dL (75-110) H 10/11/17 07:58 Calcium 8.2 mg/dl (8.6-10.4) L 10/11/17 07:58 Phosphorus 2.4 mg/dL (2.5-4.5) L 10/09/17 06:00 Magnesium 1.5 mg/dL (1.6-2.3) L 10/09/17 06:00 Total Bilirubin 0.6 mg/dL (0.2-1.3) 10/11/17 07:58 AST 36 U/L (17-59) 10/11/17 07:58 ALT 51 U/L (21-72) 10/11/17 07:58 Alkaline Phosphatase 62 U/L (38-126) 10/11/17 07:58 Total Protein 6.2 g/dL (6.3-8.3) L 10/11/17 07:58 Albumin 3.4 g/dL (3.5-5.0) L 10/11/17 07:58 Globulin 2.9 gm/dL (2.2-3.9) 10/11/17 07:58 Albumin/Globulin Ratio 1.2 (1.0-2.1) 10/11/17 07:58 Procalcitonin 0.55 NG/ML (0.19-0.49) H 10/09/17 06:00 Venous Blood Potassium 3.8 mmol/L (3.6-5.2) 10/09/17 05:55 Urine Color Yellow (YELLOW) 10/09/17 09:33 Urine Clarity Clear (Clear) 10/09/17 09:33 Urine pH 5.0 (5.0-8.0) 10/09/17 09:33 Ur Specific Roma 1.024 (1.003-1.030) 10/09/17 09:33 Urine Protein Negative mg/dL (NEGATIVE) 10/09/17 09:33 Urine Glucose (UA) Normal mg/dL (Normal) 10/09/17 09:33 Urine Ketones Trace mg/dL (NEGATIVE) 10/09/17 09:33 Urine Blood Negative (NEGATIVE) 10/09/17 09:33 Urine Nitrate Negative (NEGATIVE) 10/09/17 09:33 Urine Bilirubin Negative (NEGATIVE) 10/09/17 09:33 Urine Urobilinogen Normal mg/dL (0.2-1.0) 10/09/17 09:33 Ur Leukocyte Esterase Neg Albin/uL (Negative) 10/09/17 09:33 Urine WBC (Auto) 1 /hpf (0-5) 10/09/17 09:33 Urine RBC (Auto) 1 /hpf (0-3) 10/09/17 09:33 Ur Squamous Epith Cells < 1 /hpf (0-5) 10/09/17 09:33 Discharge Plan - Discharge Medications Prescriptions: Amoxicillin/Clavulanate [Augmentin 875 MG-125 MG] 1 tab PO Q12 #14 tab predniSONE [Prednisone] 20 mg PO DAILY #12 tab - Follow Up Plan Condition: FAIR Disposition: HOME/ ROUTINE Instructions: Prednisone (By mouth), Amoxicillin/Clavulanate Potassium (By mouth), Pneumococcal Vaccine for Adults (DC), Community Acquired Pneumonia (DC) Additional Instructions: Please f/u with Dr. Dennis office in 1 week Please continue medication as per Med. rec. [facility] DIRECT[facility] MEDICATION FROM YOUR PHARMACY
== END 2017-10-12 17:30 | disposition home or self-care (01) | DRG 195 ==
LOC: C.ER 04:58 → C.9E 06:40 → C.5S 09:13
PROVIDERS: ADMIT Internal Medicine; ATTEND Internal Medicine
DX: J18.9 Pneumonia, unspecified organism (principal); J84.10 Pulmonary fibrosis, unspecified; I10 Essential (primary) hypertension; J45.909 Unspecified asthma, uncomplicated; N40.0 Benign prostatic hyperplasia without lower urinary tract symptoms; Z87.891 Personal history of nicotine dependence; Z86.711 Personal history of pulmonary embolism

== ENCOUNTER 2018-02-14 10:32 | Emergency (ER) | payer MEDICARE, OTHER ==
[2018-02-14 10:32] VITALS: BMI 26.6
[2018-02-14 10:37] VITALS: BP 137/67; PULSE 89; TEMP 98.1; O2SAT 96
--- NOTE | 2018-02-14 10:51 | C.PDOC ---
History Of Present Illness 82 year old male presents to the ED with blood coming from the left ear canal. Patient irritates ear canal by frequently cleaning it. He states that he cleans his ear canal a few times a day, specifically when he puts his hearing aid on, and when he takes it off. Time Seen by Provider: 02/14/18 10:45 Chief Complaint (Nursing): ENT Problem History Per: Patient Onset/Duration Of Symptoms: Days Current Symptoms Are (Timing): Still Present Quality (Ear): Other (dry crusty blood from left ear canal) Past Medical History Reviewed: Historical Data, Nursing Documentation, Vital Signs Vital Signs: Last Vital Signs Temp 98.1 F 02/14/18 10:36 Pulse 89 02/14/18 10:36 Resp 16 02/14/18 11:01 BP 137/67 02/14/18 10:36 Pulse Ox 96 02/14/18 10:51 - Medical History PMH: Arthritis, Asthma, Colonic Polyps, HTN, Hypercholesterolemia Denies: Chronic Kidney Disease - [facility] Procedures REMOV INTRALUM EAR FB (08/24/14) TETANUS TOXOID ADMINIST (01/18/15) Family History: States: Unknown Family Hx - Social History Hx Tobacco Use: No Hx Alcohol Use: No Hx Substance Use: No - Immunization History Hx Tetanus Toxoid Vaccination: No Hx Influenza Vaccination: Yes Hx Pneumococcal Vaccination: Yes Physical Exam - Physical Exam Appears: Well, Non-toxic, No Acute Distress Skin: Normal Color, Warm Ear(s): Bilateral: Normal Neurological/Psych: Oriented x3, Normal Speech ED Course And Treatment O2 Sat by Pulse Oximetry: 96 (RA) Pulse Ox Interpretation: Normal Medical Decision Making Medical Decision Making: overuse of q-tips excoriated ear canal L>R instructed to stop Q-tipping TM nl Disposition Doctor Will See Patient In The: Office Counseled Patient/Family Regarding: Studies Performed, Diagnosis - Disposition Referrals: Damian Dennis MD [Staff Provider] - Disposition: HOME/ ROUTINE Disposition Time: 10:51 Condition: GOOD Additional Instructions: do NOT Q-tip your ear canals!! This is damaging the delicate tissues and can cause very bad infections. Ear drums are normal (both sides) today Dried blood in ear canal will resolve by itself. Do not clean. Forms: [employer] ([place]) - Clinical Impression Clinical Impression: Ear canal dryness - Scribe Statement The provider has reviewed the documentation as recorded by the Scribe (Ruthie Zuñiga) Provider Attestation: All medical record entries made by the Scribe were at my direction and personally dictated by me. I have reviewed the chart and agree that the record accurately reflects my personal performance of the history, physical exam, medical decision making, and the department course for this patient. I have also personally directed, reviewed, and agree with the discharge instructions and disposition.
[2018-02-14 11:14] VITALS: RESP 16
== END 2018-02-14 11:01 | disposition home or self-care (01) ==
LOC: C.ER 10:32
DX: H93.8X2 Other specified disorders of left ear (principal)

== ENCOUNTER 2019-02-13 13:26 | Outpatient (CLI) | payer MEDICARE, OTHER | END 2019-02-13 13:27 | disposition home or self-care (01) | LOC: C.USIC 13:26 | DX: E04.1 Nontoxic single thyroid nodule (principal) ==